=== PATIENT | female | born 2005 | race Caucasian/White ===

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

== ENCOUNTER 2024-04-14 13:44 | Inpatient (IN) | payer BC, MEDICAID ==
[~2024-04-14 13:44] MED LIST changes: +ALBU2.5V10 INH; -ALBU83IN INH; +CLON0.2T PO; +MEDR150I12 IM; +QUET50TA4 PO; +SERT50TA29 PO
[2024-04-14] MEDS ORDERED: NORE1PAT TOP (14:09)
[2024-04-14] MEDS ORDERED: HYDR-3363 PO (14:09)
[2024-04-14] MEDS ORDERED: VENL37.598 PO (14:09)
[2024-04-14] MEDS ORDERED: ERGO500029 PO (14:09)
[2024-04-14 14:55] LABS: HEMATOCRIT 40.4 % (36.0-47.0); HEMOGLOBIN 13.9 g/dl (12.0-15.5); MEAN CORPUSCULAR HEMOGLOBIN 30.4 pg (27.0-33.0); MEAN CORPUSCULAR HGB CONC 34.4 g/dl (32.0-36.5); MEAN CORPUSCULAR VOLUME 88.4 fl (80.0-96.0); PLATELET COUNT, AUTOMATED 324 10^3/uL (150-450); RED BLOOD COUNT 4.57 10^6/uL (4.00-5.40); WHITE BLOOD COUNT 7.9 10^3/uL (4.0-10.0)
[2024-04-14 15:12] LABS: ETHYL ALCOHOL (ETHANOL) < 0.003 % (0.000-0.010)
[2024-04-14 15:13] LABS: SALICYLATE LEVEL < 3.0 MG/DL (<30)
[2024-04-14 15:14] LABS: ALBUMIN 3.8 G/DL (3.2-5.2); ALKALINE PHOSPHATASE 78 U/L (46-116); ALT/SGPT 20 U/L (7.0-40); AST/SGOT 15 U/L (<34); BILIRUBIN,DIRECT 0.3 MG/DL (<0.4); BILIRUBIN,TOTAL 1.2 MG/DL (0.3-1.2); BLOOD UREA NITROGEN 7 MG/DL (9-23); CALCIUM LEVEL 9.8 MG/DL (8.5-10.1); CARBON DIOXIDE LEVEL 24 MMOL/L (20-31); CHLORIDE LEVEL 105 MMOL/L (98-107); CREATININE FOR GFR 0.67 MG/DL (0.55-1.30); GLUCOSE, FASTING 101 MG/DL (60-100); SODIUM LEVEL 136 MMOL/L (136-145); TOTAL PROTEIN 7.1 G/DL (5.7-8.2)
[2024-04-14 15:16] LABS: THYROID STIMULATING HORMONE 2.748 uIU/ML (0.48-4.17)
[2024-04-14 15:25] LABS: HCG, SERUM QUALITATIVE NEGATIVE (NEGATIVE)
[2024-04-14 17:37] LABS: AMPHETAMINES LEVEL URINE NEGATIVE (NEGATIVE); BARBITURATES URINE NEGATIVE (NEGATIVE); BENZODIAZEPINES URINE NEGATIVE (NEGATIVE); COCAINE METABOLITE URINE NEGATIVE (NEGATIVE)
[2024-04-14 17:38] LABS: CANNABINOIDS URINE NEGATIVE (NEGATIVE); METHADONE URINE NEGATIVE (NEGATIVE); OPIATES URINE NEGATIVE (NEGATIVE); PHENCYCLIDINE URINE NEGATIVE (NEGATIVE)
[2024-04-14] MEDS: ACETAMINOPHEN TAB 650MG DOSE (2X325MG) PO ONE (18:24)
[2024-04-14] MEDS ORDERED: BENA25CA4 PO (19:21)
[2024-04-14] MEDS ORDERED: HOME MED LIST COMPLETE! XX SCH (19:25)
[2024-04-15] MEDS ORDERED: EMTRICITABINE/TENOFOVIR 200MG/300MG TABLET PO SCH
[2024-04-15] MEDS ORDERED: RALTEGRAVIR 400 MG TAB (ISENTRESS) PO SCH
[2024-04-15] MEDS: VENLAFAXINE **XR** 37.5 MG CAPSULE PO SCH (12:04)
[2024-04-15] MEDS ORDERED: EXPOSURE KIT-ADULT 7 DAY SUPPLY PO ONE (12:45)
[2024-04-15 14:11] LABS: HEPATITIS B SURFACE ANTIBODY NEGATIVE (POSITIVE)
[2024-04-15 14:23] LABS: HEPATITIS B SURFACE ANTIGEN NEGATIVE (NEGATIVE)
[2024-04-15 14:36] LABS: HIV 1&2 SCREEN NEGATIVE (NEGATIVE)
[2024-04-15 14:44] LABS: HEPATITIS C VIRUS ABY INDEX 0.02 INDEX (<0.8)
[2024-04-15 15:16] LABS: Trichomonas vaginalis (AMP) NOT DETECTED (NEGATIVE)
[2024-04-15 15:40] LABS: GC DNA AMPLIFICATION NEGATIVE (NEGATIVE)
[2024-04-15] MEDS: AZITHROMYCIN 250MG TABLET PO ONE (17:05)
[2024-04-15] MEDS: cefTRIAXone 500MG VIAL IM ONE (18:05)
[2024-04-15] MEDS: LIDOCAINE 1% SDV 5ML VIAL DILUENT ONE (18:05)
[2024-04-15] MEDS: EMTRICITABINE/TENOFOVIR 200MG/300MG TABLET PO ONE (18:06)
[2024-04-15] MEDS: RALTEGRAVIR 400 MG TAB (ISENTRESS) PO ONE (18:06)
[2024-04-15] MEDS: ONDANSETRON 4MG ORAL DISINTEGRATING TAB PO ONE (18:22)
[2024-04-15] MEDS ORDERED: ACETAMINOPHEN TAB 650MG DOSE (2X325MG) PO PRN (22:05)
[2024-04-15] MEDS ORDERED: IBUPROFEN 400MG TAB PO PRN (22:05)
[2024-04-15] MEDS ORDERED: MOM 30ML SUSPENSION UDC PO PRN (22:05)
[2024-04-15] MEDS ORDERED: diphenhydrAMINE 25MG CAP PO PRN (22:05)
[2024-04-15 23:11] VITALS: BP 141/86; TEMP 98.4; O2SAT 98
[2024-04-16 06:00] VITALS: BP 136/75; TEMP 98; O2SAT 96
[2024-04-16] MEDS ORDERED: RALTEGRAVIR 400 MG TAB (ISENTRESS) PO SCH (09:00)
[2024-04-16] MEDS ORDERED: EMTRICITABINE/TENOFOVIR 200MG/300MG TABLET PO SCH (09:00)
[2024-04-16] MEDS ORDERED: NICOTINE POLACRILEX 2 MG GUM PO PRN (10:20)
[2024-04-16] MEDS: EMTRICITABINE/TENOFOVIR 200MG/300MG TABLET PO SCH (12:11)
[2024-04-16] MEDS: RALTEGRAVIR 400 MG TAB (ISENTRESS) PO SCH (12:11)
[2024-04-16] MEDS ORDERED: EMTR1TAB3 PO (15:41)
[2024-04-16] MEDS ORDERED: RALT40TA PO (15:41)
[2024-04-16 18:41] VITALS: BP 143/73; TEMP 97.7
[2024-04-16] MEDS: traZODone 50 MG TAB PO PRN (20:34)
[2024-04-17 06:40] VITALS: BP 123/74; TEMP 98.2; O2SAT 100
[2024-04-17] MEDS: VENLAFAXINE **XR** 75MG CAPSULE PO SCH (09:17)
[2024-04-17 17:39] VITALS: BP 145/68; TEMP 97.4; O2SAT 96
[2024-04-18 06:43] VITALS: BP 119/68; TEMP 97.6; O2SAT 99
[2024-04-18] MEDS ORDERED: NICO2GUM PO (09:47)
[2024-04-18] MEDS ORDERED: VENL75CA47 PO (09:47)
[2024-04-18] MEDS ORDERED: TRAZ-252 PO (09:47)
== END 2024-04-18 16:57 | disposition home or self-care (01) | DRG 751 ==
LOC: M ED 13:44 → M ED INP 04-15 22:02 → M PSY 04-15 22:34
PROVIDERS: ADMIT Student in an Organized Health Care Education/Training Program; ATTEND Student in an Organized Health Care Education/Training Program
DX: F33.1 Major depressive disorder, recurrent, moderate (principal); R45.851 Suicidal ideations; F43.21 Adjustment disorder with depressed mood; F60.3 Borderline personality disorder; Z62.810 Personal history of physical and sexual abuse in childhood; Z81.8 Family history of other mental and behavioral disorders; Z81.1 Family history of alcohol abuse and dependence; F17.290 Nicotine dependence, other tobacco product, uncomplicated; Z79.899 Other long term (current) drug therapy; Z88.8 Allergy status to other drugs, medicaments and biological substances; Z91.018 Allergy to other foods

== ENCOUNTER 2024-06-16 20:41 | Emergency (ER) | payer BC, MEDICAID ==
[~2024-06-16] VITALS: Ht 157.5 cm; Wt 52.3 kg
[~2024-06-16 20:41] MED LIST changes: +BENA25CA4 PO; +EMTR1TAB3 PO; +ERGO500029 PO; +HYDR-3363 PO; +NICO2GUM PO; +NORE1PAT TOP; +RALT40TA PO; +TRAZ-252 PO; +VENL37.598 PO; +VENL75CA47 PO
[2024-06-16 20:42] VITALS: BP 130/86; TEMP 97.9; O2SAT 99
[2024-06-16 21:21] LABS: BASO % 0.2 % (0.0-1.0); EOS # 0.1 10^3/uL (0.0-0.5); EOS % 0.6 % (0.0-3.0); HEMOGLOBIN 13.5 g/dl (12.0-15.5); LYMPH # 2.3 10^3/uL (1.5-5.0); LYMPH % 27.7 % (24.0-44.0); MEAN CORPUSCULAR HEMOGLOBIN 30.8 pg (27.0-33.0); MEAN CORPUSCULAR HGB CONC 35.5 g/dl (32.0-36.5); MEAN CORPUSCULAR VOLUME 86.6 fl (80.0-96.0); MONO # 0.8 10^3/uL (0.0-0.8); NEUTROPHILS # 5.2 10^3/uL (1.5-8.5); NEUTROPHILS % 62.1 % (36.0-66.0); PLATELET COUNT, AUTOMATED 329 10^3/uL (150-450); RED BLOOD COUNT 4.39 10^6/uL (4.00-5.40); WHITE BLOOD COUNT 8.4 10^3/uL (4.0-10.0)
[2024-06-16 21:47] LABS: LIPASE 39 U/L (12-53)
[2024-06-16 21:49] LABS: ALBUMIN 3.7 G/DL (3.2-5.2); ALKALINE PHOSPHATASE 80 U/L (46-116); ALT/SGPT 17 U/L (7.0-40); AST/SGOT 12 U/L (<34); BILIRUBIN,DIRECT 0.2 MG/DL (<0.4); BILIRUBIN,TOTAL 0.5 MG/DL (0.3-1.2); BLOOD UREA NITROGEN 9 MG/DL (9-23); CALCIUM LEVEL 9.4 MG/DL (8.5-10.1); CARBON DIOXIDE LEVEL 25 MMOL/L (20-31); CHLORIDE LEVEL 107 MMOL/L (98-107); GLUCOSE, FASTING 91 MG/DL (60-100); POTASSIUM SERUM 3.8 MMOL/L (3.5-5.1); SODIUM LEVEL 138 MMOL/L (136-145); TOTAL PROTEIN 7.2 G/DL (5.7-8.2)
[2024-06-16 21:53] LABS: HCG, SERUM QUALITATIVE NEGATIVE (NEGATIVE)
[2024-06-16 22:17] LABS: Trichomonas vaginalis (AMP) NOT DETECTED (NEGATIVE)
[2024-06-16 22:40] LABS: GC DNA AMPLIFICATION NEGATIVE (NEGATIVE)
[2024-06-16] MEDS ORDERED: MACR100C43 PO (23:34)
[2024-06-16] MEDS: NITROFURANTOIN (MACROBID) 100 MG CAP PO ONE (23:42)
== END 2024-06-17 00:03 | disposition home or self-care (01) ==
LOC: M ED 20:41
DX: N39.0 Urinary tract infection, site not specified (principal); F41.9 Anxiety disorder, unspecified; F32.9 Major depressive disorder, single episode, unspecified; Z79.3 Long term (current) use of hormonal contraceptives; Z79.899 Other long term (current) drug therapy; Z88.8 Allergy status to other drugs, medicaments and biological substances; Z91.018 Allergy to other foods